=== PATIENT | female | born 1945 | race Two or more races ===

== ENCOUNTER 2019-03-04 05:01 | Day surgery (SDC) | payer MEDICAID ==
[2019-03-04] MEDS ORDERED: ANESTHESIA TRAY IN PYXIS 1 EA TRAY MC ONE (05:55)
[2019-03-04] MEDS ORDERED: MIDAZOLAM HCL 2 MG/2ML VIAL ONE (06:04)
[2019-03-04] MEDS ORDERED: FENTANYL PF 250MCG/5ML AMPUL ONE ×2 (06:05)
[2019-03-04] MEDS ORDERED: FAMOTIDINE/PF INJ 20 MG/2 ML VIAL IV ONE (06:05)
[2019-03-04] MEDS ORDERED: ROCURONIUM BROMIDE 50 MG/5 ML ONE (06:06)
[2019-03-04] MEDS ORDERED: BUPIVACAINE 0.25% 75 MG/30 ML VIAL ONE (06:07)
[2019-03-04] MEDS ORDERED: EPINEPHRINE (1:1000) 1 MG/ML AMPUL ONE ×2 (06:28→06:29)
[2019-03-04] MEDS ORDERED: BUPIVACAINE 0.5 % PF 150 MG/30 ML VIAL ONE (07:34)
[2019-03-04] MEDS ORDERED: HYDROCODONE/APAP 5/325MG 1 EACH TABLET ONE (09:55)
== END 2019-03-04 10:30 | disposition home or self-care (01) ==
LOC: DS 05:01
PROVIDERS: ATTEND Specialist
DX: M24.011 Loose body in right shoulder (principal); M65.811 Other synovitis and tenosynovitis, right shoulder; M75.51 Bursitis of right shoulder; E11.9 Type 2 diabetes mellitus without complications; I10 Essential (primary) hypertension; E78.00 Pure hypercholesterolemia, unspecified
CPT/HCPCS: 29826; 29827; 29828; 71045; 82962 ×2; 88304; 88311; A4217; A6402; C1713; J0171; J0690; J2250; J2405; J2704; J2710; J2765; J3010 ×2; J3490 ×4; J7030